=== PATIENT | male | born 1990 | race Hispanic/Latino ===

== ENCOUNTER 2018-01-16 14:03 | Emergency (ER) | payer OTHER ==
[2018-01-16 14:09] VITALS: BMI 27.1
[2018-01-16 14:11] VITALS: BP 120/75; PULSE 90; RESP 20; TEMP 97.6; O2SAT 96
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
== END 2018-01-16 15:35 | disposition home or self-care (01) ==
LOC: H.ER 14:03
DX: M25.562 Pain in left knee (principal); V13.4XXA Pedal cycle driver injured in collision with car, pick-up truck or van in traffic accident, initial encounter; Y93.55 Activity, bike riding